=== PATIENT | female | born 1965 | race Caucasian/White ===

== ENCOUNTER → 2020-10-04 | Day surgery (SDC) | payer OTHER | END | disposition home or self-care (01) | LOC: FRADUS-SUR 12:34 | PROVIDERS: ATTEND Internal Medicine | PROC: 0H9T3ZX Drainage of Right Breast, Percutaneous Approach, Diagnostic (ICD-10-PCS; principal; 2020-10-04) | DX: D24.1 Benign neoplasm of right breast (principal) | CPT/HCPCS: 19083; 87899; 88305-TC; A4648 ==